=== PATIENT | male | born 1970 | race Caucasian/White ===

== ENCOUNTER 2018-11-28 13:06 | Emergency (ER) | payer OTHER ==
[~2018-11-28] VITALS: Ht 167.6 cm; Wt 74.8 kg
[~2018-11-28 13:06] MED LIST: AMPICILLIN500 MG/VIA IJ; KETO10TA2 PO; ORPH100T PO
[2018-11-28] MEDS ORDERED: XARELTO20 MG (13:27)
[2018-11-28] MEDS ORDERED: TOPROL XL50 M1 (13:28)
[2018-11-28] MEDS ORDERED: ATACAND16 MG (13:28)
== END 2018-11-28 14:29 | disposition home or self-care (01) ==
LOC: ER 13:06
DX: M54.31 Sciatica, right side (principal)

== ENCOUNTER 2020-11-11 20:34 | Emergency (ER) | payer OTHER ==
[~2020-11-11] VITALS: Ht 170.2 cm; Wt 83.9 kg
[~2020-11-11 20:34] MED LIST changes: +ATACAND16 MG; +TOPROL XL50 M1; +XARELTO20 MG
[2020-11-12] MEDS ORDERED: MEDROLPACK PO (00:38)
[2020-11-12] MEDS ORDERED: ORPHENADRINE C100 MG PO (00:38)
[2020-11-12] MEDS ORDERED: KETO10TA2 PO (00:38)
== END 2020-11-12 00:45 | disposition home or self-care (01) ==
LOC: ER 20:34
DX: M54.5 Low back pain (principal)

== ENCOUNTER 2024-02-12 12:54 | Emergency (ER) | payer OTHER ==
[~2024-02-12] VITALS: Ht 167.6 cm; Wt 83.9 kg
[~2024-02-12 12:54] MED LIST changes: +MEDROLPACK PO; +ORPHENADRINE C100 MG PO
[2024-02-12] MEDS ORDERED: FAMOtidine 10 MG/ML (4ML VIAL) IV ONE (13:15)
[2024-02-12] MEDS ORDERED: 0.9 % SODIUM CHLORIDE 1,000 ML IV ONE (13:15)
[2024-02-12] MEDS ORDERED: FAMOTIDINE/PF 20 MG/2 ML VIAL ONE (13:39)
[2024-02-12 13:50] LABS: HEMATOCRIT 47.7 % (39.0-48.0); HEMOGLOBIN 16.5 g/dL (13-16.00); MEAN CELL VOLUME 91.4 fL (80.0-100.00); MEAN CORPUSCULAR HEMOGLOBIN 31.6 pg (27.00-32.0); MEAN CORPUSCULAR HGB CONC 34.5 g/dl (32.0-36.0); RED BLOOD COUNT 5.22 M/uL (4.00-6.00); RED CELL DISTRIBUTION WIDTH 13.2 % (11.5-14.5)
[2024-02-12 14:08] LABS: ALBUMIN 3.7 gm/dL (3.4-5.0); BILIRUBIN TOTAL 1.02 mg/dL (0.3-1.2); CALCIUM 9.2 mg/dL (8.5-10.1); CREATININE SERUM 0.99 mg/dL (0.70-1.30); GFR 79.69; GLOBULINA 3.6 G/DL (2.4-3.5); POTASSIUM 4.08 mEq/L (3.5-5.1); TOTAL PROTEIN 7.3 gm/dL (6.4-8.2)
[2024-02-12 14:27] LABS: PLATELET COUNT 100 K/uL (150-450)
[2024-02-12] MEDS ORDERED: PIPERACILLIN/TAZOBACTAM SODIUM 3.375 GM VIAL IV ONE ×2 (17:15→17:20)
[2024-02-12 17:53] LABS: URINE APPEARANCE Clear; URINE BILIRRUBIN Negative (NEGATIVE); URINE BLOOD Negative; URINE COLOR Yellow; URINE GLUCOSE Negative (NEGATIVE); URINE KETONE Negative (NEGATIVE); URINE LEUKOCYTE Negative; URINE NITRATE Negative; URINE PROTEIN Negative (NEGATIVE); URINE UROBILINOGEN 0.2 E.U./dl
[2024-02-12 17:56] LABS: URINE BACTERIA 2.5 uL (0.0-1933); URINE RBC 1.6 uL (0.0-20.8); URINE WBC 0.4 uL (0.0-23.2)
[2024-02-12 17:59] LABS: INR 1.14; PROTHROMBIN TIME 12.3 SECONDS (9.0-11.5)
[2024-02-12 18:02] LABS: PARTIAL THROMBOPLASTIN TIME 45.3 SECONDS (22.0-34.0)
== END 2024-02-12 21:04 | disposition home or self-care (01) ==
LOC: ER 12:55
PROVIDERS: General Practice
DX: A90 Dengue fever [classical dengue] (principal); R16.1 Splenomegaly, not elsewhere classified; K81.9 Cholecystitis, unspecified; K57.90 Diverticulosis of intestine, part unspecified, without perforation or abscess without bleeding; R10.11 Right upper quadrant pain; I10 Essential (primary) hypertension